=== PATIENT | male | born 1990 | race Caucasian/White ===

== ENCOUNTER 2020-10-12 17:16 | Emergency (ER) | payer BC ==
[~2020-10-12] VITALS: Ht 185.4 cm; Wt 75.0 kg
[2020-10-12 17:25] VITALS: BP 110/69
[2020-10-12 18:27] LABS: HEMATOCRIT. 42.7 % (42.0-52.0); MEAN CORPUSCULAR HEMOGLOBIN 18.8 pg (28.0-32.0); MEAN CORPUSCULAR VOLUME 57.3 fL (80.0-94.0); MEAN PLATELET VOLUME 8.9 fl (7.4-10.4); PLATELET 94 x1000/uL (130-400); RED BLOOD CELL COUNT 7.45 mill/uL (4.7-6.1); RED CELL DISTRIBUTION WIDTH 15.2 % (11.6-14.6)
[2020-10-12 18:34] LABS: CHLORIDE 106 mEq/L (98-107)
[2020-10-12 20:09] LABS: PLATELET ESTIMATE DECREASED
[2020-10-12] MEDS ORDERED: CIPR-263 MT ×2 (20:26→20:41)
[2020-10-12 20:30] LABS: CLARITY URINE CLEAR (CLEAR); COLOR URINE YELLOW (YELLOW); KETONES URINE 1+ (NEGATIVE); LEUKOCYTE ESTERASE URINE NEGATIVE (NEGATIVE); NITRITE URINE NEGATIVE (NEGATIVE); OCCULT BLOOD URINE NEGATIVE (NEGATIVE); PH URINE 5.5 (4.5-8.0); PROTEIN URINE TRACE (NEGATIVE); UROBILINOGEN URINE 0.2 E.U./dL (0.2-1.0)
[2020-10-12] MEDS ORDERED: AZITHROMYCIN 500 MG TABLET PO ONE (20:45)
== END 2020-10-12 20:55 | disposition home or self-care (01) ==
LOC: ER 17:16
DX: R50.9 Fever, unspecified (principal); R19.7 Diarrhea, unspecified; D72.825 Bandemia; D69.6 Thrombocytopenia, unspecified; Z20.822 Contact with and (suspected) exposure to COVID-19; Z98.890 Other specified postprocedural states
CPT/HCPCS: 36415; 71045; 80048; 80076; 81003; 83605; 84145; 85025; 87426; 99284